=== PATIENT | female | born 1945 | race Caucasian/White ===

== ENCOUNTER 2023-04-17 10:09 | Outpatient (REF) | payer MEDICARE, SELFPAY ==
[2023-04-17 13:47] LABS: Appearance Urine Cloudy; Color Urine Dark Yellow; Glucose Urine UA Negative (Negative); Leukocyte Esterase Urine Small (1+) (Negative); Nitrite Urine Negative (Negative); PH 5.5 (5.0-9.0); Specific Gravity - Urine 1.025 (1.005-1.025); UMIC TRIGGER UACC YES; Urine Blood Small (1+) (Negative); Urine Ketones Trace mg/dL (Negative); Urine Protein Trace mg/dL (Neg-Trace)
[2023-04-17 13:55] LABS: Bacteria Urine 1+ (None Seen); Hyaline Casts Urine 0-2 /LPF (0-2); UACC Culture Trigger YES; WBC Urine >50 /HPF (0-5)
== END 2023-04-17 10:10 | disposition home or self-care (01) ==
LOC: HO.HMGCLDS 10:09
PROVIDERS: PCP Internal Medicine; Visit Provider Internal Medicine
DX: R35.0 Frequency of micturition (principal); R39.15 Urgency of urination
CPT/HCPCS: 81001; 87086; 87088; 87186

== ENCOUNTER → 2024-01-10 08:32 | Outpatient (REF) | payer MEDICARE, SELFPAY ==
--- NOTE | 2024-01-10 08:36 | CA_ITS ---
Acquisition Time: 2024-01-10 10:16:54 Total Exercise Time: 00:05:21 Test Indications: CHEST PAIN, JAW PAIN Medications: Protocol: IRON Max HR: 105 BPM 72% of Pred: 144 BPM Max BP: 140/070 mmHG Max Work Load: 4.6 METS Exercise stress test with exercise 5 min 21 sec of Iron stage 1, achieving 72% MPHR, with moderate shortness of breath, no chest discomfort, with isolated PACs and PVCs, with normotensive response to exercise, with nondiagnostic EKGs for ischemia due to suboptimal heart rate. Her breathing normalized in recovery. Test reviewed with Dr Becker She had no ischemia noted at her achieved workload - If further eval for ischemia is needed, then recommend a phamacological ( lexiscan) nuclear stress test. Referred By: Asif Robles Overread By: JUAN MAGALLANES
== END ==
LOC: HO.CARD 08:32
PROVIDERS: PCP Physician Assistant Surgical; Visit Provider Physician Assistant Surgical
DX: R07.9 Chest pain, unspecified (principal)
CPT/HCPCS: 93017

== ENCOUNTER → 2024-01-10 08:36 | Outpatient (BNV) | payer MEDICARE, SELFPAY | PROVIDERS: PCP Physician Assistant Surgical; Visit Provider Nurse Practitioner Family | DX: I49.1 Atrial premature depolarization (principal); I49.3 Ventricular premature depolarization; R06.02 Shortness of breath | CPT/HCPCS: 93016; 93018 ==

== ENCOUNTER 2024-02-01 06:40 | Outpatient (REF) | payer MEDICARE, SELFPAY ==
[2024-02-01 10:53] LABS: Alanine Aminotransferase 14 U/L (0-31); Alkaline Phosphatase 91 U/L (39-117); Anion Gap 8 (12-20); Aspartate Amino Transferase 18 U/L (5-31); Bilirubin Total 0.5 mg/dL (0.0-1.0); Blood Urea Nitrogen 18 mg/dL (9-16); Calcium 9.2 mg/dL (8.4-10.2); Carbon Dioxide 27 mmol/L (22-29); Chloride 107 mmol/L (96-108); Cholesterol 164 mg/dL (<200); Estimated Glomerular Filt Rate > 60; Glucose Random 98 mg/dL (60-115); HDL Cholesterol 60 mg/dL (>40); LDL Cholesterol Calculated 90 mg/dL (<100); Potassium 4.2 mmol/L (3.3-5.1); Sodium 138 mmol/L (135-145); TSH reflex Free T4 1.41 uIU/mL (0.32-4.0); Total Protein 6.5 g/dL (6.5-8.0); Triglycerides 70 mg/dL (<150)
[2024-02-01 10:57] LABS: Estimated Average Glucose 105 mg/dL; Hemoglobin A1C 137.2134 umol/L; Hemoglobin A1c % 5.3 % (<6.0); Total Hemoglobin (HGBA1C) 3973.5094 umol/L
== END 2024-02-01 06:41 | disposition home or self-care (01) ==
LOC: HO.HMGCLDS 06:40
PROVIDERS: PCP Internal Medicine; Visit Provider Physician Assistant Surgical
DX: Z00.00 Encounter for general adult medical examination without abnormal findings (principal); E78.2 Mixed hyperlipidemia; Z13.1 Encounter for screening for diabetes mellitus
CPT/HCPCS: 36415; 80053; 80061; 83036; 84443

== ENCOUNTER 2024-07-31 06:38 | Outpatient (REF) | payer MEDICARE, SELFPAY ==
[2024-07-31 10:53] LABS: Cholesterol 150 mg/dL (<200); HDL Cholesterol 61 mg/dL (>40); LDL Cholesterol Calculated 75 mg/dL (<100); Triglycerides 70 mg/dL (<150)
== END 2024-07-31 06:39 | disposition home or self-care (01) ==
LOC: HO.HMGCLDS 06:38
PROVIDERS: PCP Internal Medicine; Visit Provider Physician Assistant Surgical
DX: E78.2 Mixed hyperlipidemia (principal)
CPT/HCPCS: 36415; 80061

== ENCOUNTER 2025-01-21 13:59 | Outpatient (REF) | payer MEDICARE, SELFPAY ==
[2025-01-21 16:08] LABS: Appearance Urine Clear; Glucose Urine UA Negative (Negative); PH 6.5 (5.0-9.0); Specific Gravity - Urine 1.015 (1.005-1.025); UMIC TRIGGER UACC YES
[2025-01-21 16:12] LABS: UACC Culture Trigger YES
--- OUTSIDE RECORDS SUMMARY | 2025-01-21 17:10 | XMS_ITS | Encounter Summary ---
Author Organization [facility] Address [address] [facility] [address] [place] [id number] Phone Care Team Providers Care Tempering Oven Operator Name Role Phone Asif Robles PA-C Primary Care Provider [phone] Encounter Details Date Type Department Care Team (Late st Contact Info) Description 01/21/2025 Telephone I Do Now I Don't Medical [facility] Internal Medicine [address], [place] [id number] Asif Robles PA-C [address] [place], [place] [phone] [email or web address] Social History Tobacco Use Types Packs/Day Years Used Date Smoking Tobacco: Every Day Cigarettes 0.5 61.8 Started: 1961 Smokeless Tobacco: Never Alcohol Use Standard Drinks/Week Comments Yes 0 (1 standard drink = 0.6 oz pur e alcohol) 1 drinks, 2-4 x month, wine Child or Family Care Answer Date Record ed Do you have problems with on e of the following making it difficult for you to work, study, or receive health care? No 10/26/2021 Education Answer Date Recorded Are you interested in more education? Not on jack e 10/31/2023 Are you concerned about learning? Not on file 10/31/2023 No 10/31/2023 No 10/31/2023 Food Answer Date Recorded Within the past 6 months we worried whether our food would run out before we got money to buy more. Never True 10/26/2021 Within the past 6 months the food we bought just didn't last and we didn't have enough money to get more. Never True Residential Stability Answer Date Recor ded What is your housing situation today? I have moose claudio 10/26/2021 How many times have you move d in the past 12 months? Zero (I did not move) 10/26/2021 Paying for Meds Answer Date Recorded Do you have trouble paying for medicines? No 10/26/2021 Paying Utility Bills Answer Date Record ed Do you have trouble paying your heating or elect ricity bill? No 10/26/2021 Transportation Answer Date Recorded Has the lack of transportati on kept you from medical appointments or from getting medications? No 10/26/2021 Unemployment Answer Date Recorded Are you currently unemployed or working on a part-time or temporary basis, and looking for work? No 10/26/2021 Digital Access Answer Date Recorded No 08/14/2022 No 08/14/2022 Reliable internet access at home? Not on file 08/14/2022 Device with a working camera? Not on file Intimate Partner Violence Answer Date R ecorded Denied Basic Needs Not on file 01/30/2024 In the past 12 months have y ou been in a relationship with a person who hurts, threatens, or tries to control you? No 01/30/2024 Worried food would run out Not on file 01/29 In the past 12 months have y ou been in a relationship with a person who hurts, threatens, or tries to control you? No 01/30/2024 Comments No Sex and Gender Information Value Date Recorded Sex Assigned at Female 07/28/2021 9:38 PM EDT Legal Sex Female 10:05 PM EDT Gender Identity Female 07/28/2021 9:38 PM EDT Sexual Orientation Straight 07/28/2021 9: 38 PM EDT documented as of this encounter Progress Notes * Karri Ortiz - 01/21/2025 1:07 PM EST Faxed to [facility] [employer] lab with confirmation receipt received. * Nadia Demarco RN - 01/21/2025 12:45 PM EST Spoke to Zoe and advised. Would like order sent to [facility] lab on [address] in [place]. * Nadia Demarco RN - 01/21/2025 8:42 AM EST Spoke to Zoe. States she has been having urinary urgency and frequency. States I was almost peeing my pants, every time she turned on the sink, etc. States she was up every hour last night. States she's had a UTI in the past. No burning with urination, fever, or back pain. Will review with PCP. * Karri Ortiz - 01/21/2025 8:20 AM EST Patient called stating she is having urinary frequency since yesterday. No burning. Would like to speak with nursing documented in this encounter Plan of Treatment Upcoming Encounters Date Type Department Care Team (Late st Contact Info) Description 02/09/2025 9:00 AM EST Office Visit [facility] [address] [place] [address] Asif Robles PA-C [address] [place] [address] [email or web address] Scheduled Orders Name Type Priority Associated Diagnoses Orde r Schedule Urinalysis with Reflex to Urine Culture Lab Routine Urinary frequency Expected: 01/21/2025, Expires: 01/21/2026 documented as of this encounter Visit Diagnoses Diagnosis Urinary frequency- Primary documented in this encounter Additional Health Concerns Assessment Noted Time PHQ-9 Depression Total Score: 3 06/21/19 23 9:13 AM EDT PHQ-2 Depression Total Score: 0 01/30/20 24 9:20 AM EST documented as of this encounter Care Teams Tempering Oven Operator Relationship Specialty Start Date End Date Asif Robles PA-C [address] [place] [address] [email or web address] PCP - General Physician Human Resources Intern 12/28/23 documented as of this encounter Additional Source Comments The information contained in this document represents components of the legal health record. It is not the complete legal health record.[facility]
--- OUTSIDE RECORDS SUMMARY | 2025-01-21 17:10 | XMS_ITS | Clinical Summary ---
Author Organization [facility] Address [address] [address] Phone Care Team Providers Care Police Detention Attendant Name Role Phone Asif Robles PA-C Primary Care Provider [phone] Allergies Active Allergy Reactions Criticality Noted Date Comments Covid-19 Vacc,Mrna(Moderna)-Pf Itching 12/24 burning Medications aspirin 81 MG EC tablet Take 1 tablet (81 mg total) by mouth daily. 90 tablet 3 4 Active vitamin E 400 unit Cap Take 1 capsule (400 Units total) by mouth daily. 90 capsule 3 4 Active LORazepam (ATIVAN) 0.5 MG tabletIndications: Anxiety Take 1 tablet (0.5 mg total) by mouth daily as needed for anxiety. 10 tablet 5 Active amLODIPine (NORVASC) 10 MG tabletIndications: Essential hypertension Take 1 tablet (10 mg total) by mouth daily. 90 tablet 3 5 Active atenolol (TENORMIN) 50 mg tabletIndications: Essential hypertension TAKE ONE AND ONE-HALF TABLETS DAILY 135 tablet 3 5 Active lisinopril (PRINIVIL,ZESTRIL) 40 MG tabletIndications: Essential hypertension Take 1 tablet (40 mg total) by mouth daily. 90 tablet 3 5 Active pravastatin (PRAVACHOL) 40 MG tabletIndications: Mixed hyperlipidemia Take 1 tablet (40 mg total) by mouth daily. 90 tablet 3 5 Active cyclobenzaprine (FLEXERIL) 5 MG tablet Take 1 tablet (5 mg total) by mouth 2 (two) times a day as needed (neck pain and muscle spasm). 20 tablet 5 Active erythromycin (ROMYCIN) ophthalmic ointment Place 0.5 inches into the left eye nightly at bedtime. 3.5 g 5 Active cyanocobalamin (VIT B-12) 1000 MCG tablet Take 100 mcg by mouth daily. 12/25/19 25 Discontin ued(No longer taking) cholecalciferol (VITAMIN D3) 2,000 unit capsule Take 1 capsule (2,000 Units total) by mouth daily. 90 capsule 3 4 12/25/19 25 Discontin ued(No longer taking) cyclobenzaprine (FLEXERIL) 5 MG tabletIndications: Cervicalgia Take 1 tablet (5 mg total) by mouth 2 (two) times a day as needed (neck pain and muscle spasm). 5 12/25/19 25 Discontin ued(No longer taking) Active Problems Problem Noted Date Diagnosed Date Hordeolum externum of left lower eyelid 12/25/19 Assessment & Plan (12/24/2024 10:42 AM EDT): Patient noted to have eye pain since Sunday with noted area Sunday and started using warm teabags and warm cloths. It is unclear if it ended up coming to ahead however she woke up with her eyes sealed shut with yellow/brownish discharge. Today she notes that it feels slightly improved however still has some sandpaper feeling in the eye. On physical exam she is noted to have a stye located on the left lower lid with noted conjunctival erythema. I will treat with erythromycin ointment daily. Patient was advised to continue warm green teabags good hand hygiene. Annual physical exam 01/30/2024 Assessment & Plan (01/30/2024 12:42 PM EST): Labs CMP, TSH, hemoglobin A1c, lipid panel Patient has declined colonoscopy or use of Cologuard Patient did have a mammogram in December 2023 which showed no evidence of malignancy. Follow-up in 1 year for annual physical Breast cancer screening by mammogram 12/28/2023 Assessment & Plan (12/28/2023 10:35 AM EDT): Mammogram [facility] Other chest pain 12/28/2023 Assessment & Plan (07/29/2024 8:58 AM EDT): Patient during her last office visit was noted to have chest pain and therefore an EKG was obtained which revealed no ST-T wave abnormalities. She was sent for a stress test which was completed at [facility] back in December 2023 which revealed exercise 5mm 21 sec of meeta stage 1, achieving 72% MPHR, with moderate sob, no chest discomfort, with isolated PACs and PVCs with normotensive response to exercise, with non-diagnostic EKGs for ischemia due to suboptimal HR, breathing normalized in recovery . No ischemia noted at achieved workload. She has had only two episodes of chest pain since the stress test. It is located in the right side of the chest with some radiation into the jaw. She describes the pain as dull ache. The pain last for about 3 minutes. She denies any sob and dizziness with the pain. She declines the nuc stress test. Patient was advised that if she continues to have episodes or if she had worsening episode she needs to call 911 and be transported to the ER for further evaluation. Assessment & Plan (01/30/2024 12:41 PM EST): No further episodes of chest pain. Patient underwent a cardiac stress test at [facility] which showed no ischemia noted. I did discuss with her if her symptoms do return then she is going to need to require pharmacological stress test. Assessment & Plan (12/28/2023 11:11 AM EDT): Patient with two episodes of chest pain with radiation to the jaw, no arm pain. No dizziness or lightheadedness. EKG: Normal sinus rhythm with a heart rate of 53. No ST T wave abnormalities. Stress test ordered and patient would like to have done at [facility] Cigarette smoker 10/08/2020 Assessment & Plan (07/29/2024 8:57 AM EDT): Patient mentions that she is still smoking however she has cut back on her cigarette use. Her last CT chest lungs cancer screening was back in December 2023. No significant change in multiple bilateral pulmonary solid nodules her next repeat will be in December 2024 Assessment & Plan (12/28/2023 10:36 AM EDT): CT scan Chest annual screening for lung cancer at [address] [place]. Anxiety 08/07/2017 Assessment & Plan (07/29/2024 8:30 AM EDT): Well-controlled on Ativan 0.5 mg p.o. daily as needed Assessment & Plan (01/30/2024 12:38 PM EST): Well-controlled on Ativan 0.5 mg p.o. daily as needed Assessment & Plan (12/28/2023 10:31 AM EDT): Continue ativan daily prn Essential hypertension 08/07/2017 Assessment & Plan (07/29/2024 8:29 AM EDT): Well-controlled on amlodipine 10 mg p.o. daily, atenolol 75 mg p.o. daily and lisinopril 40 mg p.o. daily Assessment & Plan (01/30/2024 12:38 PM EST): Well-controlled on amlodipine 10 mg p.o. daily, atenolol 75 mg p.o. daily and lisinopril 40 mg p.o. daily Assessment & Plan (12/28/2023 10:33 AM EDT): Well controlled on Norvasc 10md daily, Atenolol 50mg daily and Lisinopril 40mg daily Mixed hyperlipidemia 08/07/2017 Assessment & Plan (07/29/2024 8:30 AM EDT): Continue pravastatin 40 mg p.o. daily and obtain a lipid panel Assessment & Plan (01/30/2024 12:38 PM EST): Continue pravastatin 40 mg p.o. daily and obtain a lipid panel Assessment & Plan (12/28/2023 10:33 AM EDT): Continue pravastatin 40mg daily Osteopenia 08/07/2017 Assessment & Plan (12/28/2023 10:32 AM EDT): Last DXA scan was back in 01/02/22, DXA scan - [facility] order placed Chronic obstructive pulmonary disease 08/07/2017 Assessment & Plan (07/29/2024 8:29 AM EDT): Patient not currently on any inhalers and feels as though is that her symptoms are very well-controlled. Assessment & Plan (12/28/2023 10:33 AM EDT): Not on any inhalers feels fine. Resolved Problems Problem Noted Date Diagnosed Date Resolved Date Urinary frequency 12/28/2023 07/29/2024 Assessment & Plan (12/28/2023 11:12 AM EDT): Patient with a hx of UTIs. Patient with urinary frequency and urgency no pain/no burning. POCT UA: Negative leukocyte esterase, negative nitrates trace blood which patient states has had happened before in the past and had seen urology with a cystoscopy which was noted to be negative Post-menopausal 04/14/2021 12/28/2023 Alcohol use 10/08/2019 12/28/2023 Impaired fasting blood sugar 10/08/2019 12/28/2023 Skin lesion of back 05/29/2018 12/28/19 24 Numbness of feet 08/07/2017 12/28/2023 Post menopausal syndrome 08/07/201701/2024 Simple chronic bronchitis 08/07/2017 Multiple pulmonary nodules 08/07/2017 1 Microscopic hematuria 06/19/20172023 Encounters Date Type Department Care Team Description 01/21/2025 Telephone [facility] Internal Medicine [address], [place] [address] Asif Robles PA-C 12/24/2024 10:00 AM EDT Office Visit [facility] Internal Medicine [address], [place] [address] Asif Robles PA-C Hordeolum externum of left lower eyelid (Primary Dx) 12/23/2024 Documentation [facility] Internal Medicine [address] [facility] [address] [place], [place] [address] Asif Robles PA-C 12/23/2024 Telephone [facility] Internal Medicine [address], [place] [address] Asif Robles PA-C Eye Problem 11/21/2024 Telephone [facility] Internal Medicine [address] [facility] [place], [place] [address] Asif Robles PA-C prior auth CT 11/21/2024 Telephone [facility] Internal Medicine [address] [place], [place] [address] Asif Robles PA-C from Last 3 Months Immunizations Immunization Administration Dates Next Due COVID-19 (Pre-01/08) Moderna Vaccine, mRNA, PF 06/01/2020,05/04/2020 INFLUENZA, SPLIT VIRUS, TRIV ALENT W/ PRESERVATIVE IM 10/24/2016,11/24/2013,12/01/2012,11/27 Influenza High-Dose Quadriva lent Preservative Free IM 01/10/2023,12/25/2021,12/17/2020,12/16 Influenza High-Dose Trivalen t Preservative Free IM 12/09/2024,12/25/2023,12/16/2018,10/24,11/10/2015,12/04/2014 Influenza Trivalent Adjuvant ed Preservative free IM 12/20/2017 Pneumococcal conjugate PCV13 08/27/2014,06/18/19 15 Pneumococcal polysaccharide PPSV23 12/20/2017,,10/11/2012 RSV Vaccine (monovalent, adjuvanted) 01/24/2023 Td, unspecified formulation 07/22/2009 Tdap 11/28/2011 Zoster live 01/06/2012 Zoster recombinant 03/05/2018,12/20/2017 Family History Medical History Relation Comments Cancer Father Diabetes Father Diabetes mellitus Father Esophageal cancer Father Hypertension Father Vascular disease Father Atrial fibrillation Mother CV disease Mother Hypertension Mother Hypertension Sibling Hypertension Sister 1 Hypertension Sister 2 No Known Problems Son 1 Drug use disorder Son 2 Relation Status Comments Father (Age 81) Mother (Age 90) Sibling Sister 1 Alive Sister 2 Alive Son 1 Alive Son 2 Alive Social History Tobacco Use Types Packs/Day Years [...] your housing situation today? I have moose sing 10/26/2021 How many times have you move [...] Orientation Straight 07/28/2021 9: 38 PM EDT Last Filed Vital Signs Vital Sign Reading Time Taken Comments Blood Pressure 112/64 12/24/2024 10:00 AM EDT Pulse 55 12/24/2024 10:00 AM EDT Temperature 36.8 C (98.3 F) 06/20/2022 9:15 AM EDT Respiratory Rate 16 12/24/2024 10:00 AM EDT Oxygen Saturation 99% 12/24/2024 10:00 AM EDT Inhaled Oxygen Concentration - - Weight 66.2 kg (146 lb) 12/24/2024 10:00 AM EDT Height 167.6 cm (5' 5.98 ) 12/24/2024 10:00 AM E DT Body Mass Index 23.58 12/24/2024 10:00 AM EDT Plan of Treatment Upcoming Encounters Date Type Department Care Team (Late st Contact Info) Description 02/09/2025 9:00 AM EST Office Visit [facility] Internal Medicine [address] [place] [address] Asif Robles PA-C [address] [place] [address] [email or web address] Health Maintenance Due Date Last Done Comments Adult Td,Tdap Booster 11/27/2021 11/28/2011, 010 DEPRESSION SCREENING 01/29/2025 01/30/2024, 06/21/19 23 CREATININE LEVEL 01/31/2025 02/01/2024, , 06/22/2022, Additional history exists POTASSIUM LEVEL 01/31/2025 02/01/2024, 12/18, 06/22/2022, Additional history exists BLOOD PRESSURE 06/24/2025 12/24/2024 LUNG CANCER SCREENING (LDCT Only) 11/21/2025 11/21/2024, 01/18/2024, 12/28/2023, Additional history exists SMOKING Hx and SMOKELESS TOBACCO SCREENING 12/24/2025 12/24/2024 FOLLOW UP BONE DENSITY TESTING 12/27/2025 12/28/2023, 10/26/2021, 02/06/2007 LIPID PANEL 07/31/2029 07/31/2024, 07/17, 07/31/2024, Additional history exists HEPATITIS C SCREENING Completed 09/13/2016 PNEUMOCOCCAL VACCINES (50+ years) Completed 12/20/2017, 12/31/2015, 08/27/2014, Additional history exists ZOSTER VACCINES Completed 03/05/2018, 06/2017, 01/06/2012 RSV VACCINE Completed 01/24/2023 OSTEOPOROSIS SCREENING INITIAL (ONE-TIME) Completed 12/28/2023, 10/26/2021, 02/06/2007 INFLUENZA VACCINE Completed 12/09/2024, , 01/10/2023, Additional history exists HEPATITIS A VACCINES Aged Out No long er eligible based on patient's age to complete this topic HIB VACCINES Aged Out No longer eligi ble based on patient's age to complete this topic MENINGOCOCCAL VACCINES (ACWY) Aged Out No longer eligible based on patient's age to complete this topic MENINGOCOCCAL VACCINES (B) Aged Out N o longer eligible based on patient's age to complete this topic Medical Devices Not on file Procedures Procedure Name Priority Date/Time Associated Diagnosis Comments CT CHEST LUNG CANCER SCREENING DIAGNOSTIC FOLLOW UP Routine 11/21/2024 10:30 AM EDT Pulmonary nodules OUTSIDE HDL Routine 07/31/2024 OUTSIDE POTASSIUM LEVEL Routine 02/01/2024 OUTSIDE SERUM CREATININE LEVEL Routine 02/01/2024 BD DXA MONITORING Routine 12/28/2023 10: 30 AM EDT Osteopenia, unspecified location OUTSIDE HEPATITIS C VIRUS SCREENING Routine 09/13/2016 from Last 3 Months or Most Recently Relevant to Health Maintenance Results * Outside HDL (07/31/2024) HDL - External 61 40 - 80 mg/dL Result [facility] Provider LAB BLOOD ORDERABLES Tami l Result * Outside Potassium Level (02/01/2024) Potassium level - External 4.2 3.4 - 5.0 mmol/L Result [facility] Provider LAB BLOOD ORDERABLES Tami l Result * (ABNORMAL) Outside Serum Creatinine Level (02/01/2024) Creatinine, serum - External 0.7(A) 0.8 - 1.3 mg/dL Result [facility] Provider LAB BLOOD ORDERABLES Tami l Result * HM LDCT PROCEDURE FOR RESULT ENTRY ONLY (01/18/2024 11:08 AM EDT) [facility] [employer] Final Result * Outside Hepatitis C Virus Screening (09/13/2016) Hepatitis C Screening - External Neg Result [facility] LAB BLOOD ORDERABLES Atmi l Result * OUTSIDE BONE DENSITY SCREENING (02/06/2007) Pathologist [facility] BONE DENSITY SCREENING - EXTERNAL osteopenia, 2 yr recall [facility] [employer] Edited Result - Final from Last 3 Months or Most Recently Relevant to Health Maintenance Insurance MEDICARE PPO BLUE REPLACEMENT MEDICARE PPO BLUE [place] [place] [address] MEDICARE PPO BLUE [place] [place] [address] MED[address] [place] [address] [address] [place] [place] [address] [address] [place] [place] [address] [address] [place] [place] [address] MED[address] [place] [address] MEDICARE PPO BLUE REPLACEMENT Care Teams Police Detention Attendant Relationship Specialty Start Date End Date Asif Robles PA-C [address] [place] [address] [email or web address] PCP - General Physician Wirer Passenger Car 12/28/23 Additional Source Comments The information contained in this document represents components of the legal health record. It is not the complete legal health record.[facility]
--- OUTSIDE RECORDS SUMMARY | 2025-01-21 17:10 | XMS_ITS | Patient Health Record ---
Author Organization [facility] Address [address] [place] [address] Care Team Providers Care Cake Tester Name Role Phone Lara MORRISON, Mirta Primary Care Provider Dave Kapoor Unavailable [phone] Reason For Referral No Information Medications Medication SIG (Take, Route, Fr equency, Duration) Notes Start Date End Date Status Suprep Bowel Prep 1 kit as directed Oral ly as directed; Duration: 1 dose 01/09/2013 Activ e Multi Vitamin/Minerals Active LORazepam 0.5mg Acti ve Aspir-81 81mg Active Atenolol 50mg Active Lisinopril 30mg Acti ve Pravastatin Sodium 40mg Active Problems Problem Type SNOMED Code ICD Code Onset Dates Problem Status W/U Status Risk Notes Problem Colon cancer screening (672921391) Colon cancer screening (V76.51) Active confirmed Plan Of Treatment Future Test Test Name Order Date COLONOSCOPY 01/09/2013 Insurance Providers Payer Name Payer Address Payer Phone Subscriber Number Group Number Insured Name Patient Relationship to Insured Coverage Start Date Coverage End Date [employer] [address] [place] [address] [id number] TESSY MATUTE Self - patient is the insured Medical (General) History Medical History History ICD Code hypertension Denies NC,DM,CVA,Lung disease,renal dise ase Hyperlipidemia Neg ETT, Cardiac ECHO, and 24-hour Cheng r with Dr. Burgos. Neg. cystoscopy for Hematuria-Dr. Hermann kahn Surgical History Surgery Date(Month/Year) hysterectomy aprox 1987
== END 2025-01-21 14:00 | disposition home or self-care (01) ==
LOC: HO.HMGCLDS 13:59
PROVIDERS: PCP Physician Assistant Surgical; Visit Provider Physician Assistant Surgical
DX: R35.0 Frequency of micturition (principal)
CPT/HCPCS: 81001; 81003; 87086; 87088; 87186